=== PATIENT | male | born 1990 | race Caucasian/White ===

== ENCOUNTER 2023-08-31 11:17 | Emergency (ER) | payer BC ==
[~2023-08-31] VITALS: Ht 190.5 cm; Wt 95.3 kg
[2023-08-31 11:20] VITALS: BP 137/88; PULSE 98; RESP 16; TEMP 98.2; O2SAT 98
[2023-08-31] MEDS ORDERED: ASPIRIN 325 MG TAB PO ONE (12:05)
[2023-08-31 12:29] VITALS: O2SAT 98
[2023-08-31 12:31] LABS: BASOPHILS # (AUTO) 0.1 K/uL (0.00-0.22); BASOPHILS % (AUTO) 0.6 % (0.0-2.0); EOSINOPHILS # (AUTO) 0.1 K/uL (0-0.4); EOSINOPHILS % (AUTO) 0.8 % (0.0-4.0); HEMATOCRIT 39.5 % (36-52); HEMOGLOBIN 13.8 g/dL (12.0-18.0); LYMPHOCYTES # (AUTO) 1.3 K/uL (2.0-11.5); LYMPHOCYTES % (AUTO) 13.8 % (20.5-51.1); MEAN CORPUSCULAR HEMOGLOBIN 31 pg (27-31); MEAN CORPUSCULAR HGB CONC 35 g/dL (33-37); MEAN CORPUSCULAR VOLUME 90.2 fL (80-94); MONOCYTES # (AUTO) 0.7 K/uL (0.8-1.0); MONOCYTES % (AUTO) 7.8 % (1.7-9.3); NEUTROPHILS # (AUTO) 7.4 K/uL (1.8-7.7); PLATELET COUNT (AUTO) 271 K/uL (140-450); RED BLOOD CELL COUNT(AUTO) 4.38 MIL/uL (4.20-6.10); RED CELL DISTRIBUTION WIDTH 12.6 % (11.6-13.7); WHITE BLOOD COUNT (AUTO) 9.6 K/uL (4.8-10.8)
[2023-08-31] MEDS ORDERED: LORazepam 1 MG TAB PO ONE (12:40)
[2023-08-31 12:51] LABS: ANION GAP 12.2 (8-16); CALCIUM 9.4 mg/dL (8.5-10.1); CARBON DIOXIDE 29.5 mmol/L (21-32); POTASSIUM 3.7 mmol/L (3.5-5.1); TOTAL BILIRUBIN 0.5 mg/dL (0.0-1.0); TOTAL PROTEIN, SERUM 7.8 g/dL (6.4-8.2)
[2023-08-31 13:29] VITALS: TEMP 98.2
[2023-08-31 15:09] VITALS: O2SAT 98
[2023-08-31] MEDS ORDERED: ATA25 PO (15:48)
[2023-08-31 16:04] VITALS: BP 110/65; PULSE 91; RESP 23; O2SAT 99
== END 2023-08-31 16:04 | disposition home or self-care (01) ==
LOC: MED 11:17
DX: R07.89 Other chest pain (principal); R06.02 Shortness of breath; F41.9 Anxiety disorder, unspecified; J45.909 Unspecified asthma, uncomplicated; Z79.899 Other long term (current) drug therapy
CPT/HCPCS: 36415; 71045; 80053; 83880; 84484; 85025; 93005; 99285; Q0092